=== PATIENT | male | born 1995 | race African-American/Black ===

== ENCOUNTER 2025-03-02 11:51 | Emergency (ER) | payer OTHER, SELFPAY ==
[2025-03-02 11:54] VITALS: BP 158/99
[2025-03-02 12:37] VITALS: BMI 30.5
--- NOTE | 2025-03-02 12:49 | ED.GENMED ---
History of Present Illness
General
Chief Complaint: Headache
Source: patient
Exam Limitations: none
Time Seen by Provider: 03/02/25 12:39
History of Present Illness
History of Present Illness:
29-year-old male complaining of about 1 week of right sided headaches. No history of headaches. Dull in nature. Comes and goes. Some response to acetaminophen. No fever no photophobia no other neurologic symptoms. No trauma. Headache is
mostly behind the right eye does radiate at times to the right neck. Concerned especially because his blood pressure this morning which initially was 120s over 80s went up on multiple rechecks up to a diastolic of 110.
Past History
Past History
ED Past Medical History: None
Phy Exam
Physical Exam
Physical Exam:
GENERAL: Alert and oriented in no apparent distress
EYE: Orbits normal. Discs sharp
NECK: Supple, no carotid bruit
ENT: Pharynx without erythema
CARDIAC: Regular rate and rhythm without any obvious murmurs.
LUNGS: Clear breath sounds,normal
ABDOMEN: Soft, without focal tenderness or distention
NEUROLOGICAL: Alert and oriented , cranial nerves II through XII intact. Speech normal. Extraocular muscles intact. No nystagmus. Lnbefy-ml-xfmy normal. No drift. Qdtg-di-guhm normal.
SKIN: Warm and dry, no rash or lesion, no discoloration, skin intact.
MUSCULOSKELETAL: No edema,no deformity.Good color
PSYCH: Normal and appropriate interaction.
Course
Orders/Labs/Results
Orders:
Orders
03/02/25
CT Head & Neck Angio W/wo IV Urgent
Comment:
Reason For Exam: Right sided headache with radiation to the neck
03/02/25 12:48
Electrocardiogram (*1) Stat
Reason for Study: Other
Other Reason for Exam: neuro symptoms
Cardiac Monitoring- Treatment ONCE
EKG- Treatment ONCE
IV Insert/Care/Rem.- Treatment PRN
0.9% Sodium Chloride 500 ml [Nss] 500 ml IV BOLUS
Pulse Ox/cont/shift [RESP] Stat
Quantity: 1
03/02/25 12:56
Basic Metabolic Panel Urgent
Complete Blood Count/With Diff Urgent
Erythrocyte Sed Rate Urgent
Abnormal Lab Results
03/02/25
12:56
WBC 4.0 L 10^3/uL
(4.8-10.8)
MPV 12.3 H fL
(7.4-10.4)
Monocytes % 10.9 H %
(1.7-9.3)
Glucose 103 H mg/dl
(70-99)
03/02/25 12:56
03/02/25 12:56
Vital Signs
Initial and Last Documented VS:
Initial Vital Signs
Temp Pulse Resp BP Pulse Ox
98.4 F 72 16 158/99 100
03/02/25 11:54 03/02/25 11:54 03/02/25 11:54 03/02/25 11:54 03/02/25 11:54
Last Documented Vital Signs
Temp Pulse Resp BP Pulse Ox
98.4 F 60 21 153/90 100
03/02/25 11:54 03/02/25 15:15 03/02/25 15:15 03/02/25 15:00 03/02/25 15:15
MDM/Problems Addressed
Differential Diagnosis Includes:
Patient with right-sided retrobulbar headache with at times radiation to the right neck. The eye is normal. Do not feel this is acute angle glaucoma. Neurologically stable. Unlikely to be a primary blood pressure issue although blood pressure
will be remonitored. With radiation to the right neck to consider carotid dissection. Unlikely but CTA will be ordered. Also check ESR.
*Radiology
Radiology exam reviewed: radiology read reviewed (neg ct angio)
*Pulse Oximetry
SaO2: 100
Oxygen Mode of Delivery: Room air
Patient hypoxic: no
*EKG
Interpreted by ED Provider?: Yes
Interpretation: normal
Comparison EKG: no comparison EKG present
Heart Rate: 59
Rate: bradycardiac
Rhythm: sinus
Trent: normal axis
Interval: normal interval
QRS Pattern: normal QRS
Ischemia: no ischemia
*Critical Care Note
Total Time (30-74mins, 75-104mins- exclusive of procedures): Not Applicable
Update Note
Update Note:
1538... Last blood pressure 153/90. Medically stable and nontoxic. Workup unremarkable. No indication for emergent blood pressure management but should follow-up. Some options are given to the patient.
ED Attending Note
-
Portions of this chart may have been created with voice recognition software.� Occasional wrong word or��sound alike� substitutions may have occurred due to the inherent limitations of voice recognition software.
Discharge Plan
Departure
Patient Disposition: Home (Routine Discharge)
Date of Disposition: 03/02/25
Time of Disposition: 15:42
Patient with high blood pressure during this ER visit?: Yes
Discharge Problem:
Headache/hypertension
Instructions: Headache, Adult (DC), BLOOD PRESSURE
Referrals:
[facility] [Provider Group] - Next open appointment
Juan Manuel Almeida MD [Active, Nephrology] - Next open appointment
Jelani Hernadez MD [Active, Cardiology] - Next open appointment
Stand Alone Forms: Return to Work
Activity Restrictions/Additional Instructions:
Watch your blood pressure
Follow-up closely. I gave you 3 options.
Return with any concerns or progression of symptoms
Interventions
Interventions:
*Risk Screen - Suicide Last Done: 03/02/25 11:54
*General Assessment Last Done: 03/02/25 12:37
*Neglect/Abuse Screening Last Done: 03/02/25 11:54
*ED- Fall Risk Assessment Last Done: 03/02/25 12:37
*ED COVID-19 Vaccine History Last Done: 03/02/25 12:37
ED- Cardiac Assessment Last Done: 03/02/25 12:40
ED- Neurological Assessment Last Done: 03/02/25 12:40
ED- Pulmonary Assessment Last Done: 03/02/25 12:40
Discharge Date and Time
Print Language: THAI
[2025-03-02 13:02] LABS: Hematocrit 41.1 % (39.0-52.0); Hemoglobin 13.6 g/dL (13.0-18.0); Mean Corp Hgb Conc. 33.1 g/dL (33.0-37.0); Mean Corpuscular Volume 82.2 fL (80.0-94.0); Nucleated Red Blood Cells % 0 % (-); Platelet Count 205 10^3/uL (130-400); Red Cell Dist. Width 14.1 % (11.5-14.5)
[2025-03-02 13:15] LABS: Blood Urea Nitrogen 9 mg/dl (9-20); Calcium 9.8 mg/dl (8.4-10.2); Carbon Dioxide 26 mmol/L (22-30); Chloride 107 mmol/L (98-107); Estimated Creatinine Clearance > 125 ml/min; Glucose 103 mg/dl (70-99); Potassium 3.8 mmol/L (3.5-5.1); Sodium 142 mmol/L (135-145); eGFR > 60.00
[2025-03-02] MEDS: NSS 500 IV (13:16)
[2025-03-02 14:30] VITALS: BP 157/98
[2025-03-02 15:00] VITALS: BP 153/90
[2025-03-02 16:00] VITALS: BP 160/100
== END 2025-03-02 16:32 | disposition home or self-care (01) ==
LOC: EMR 11:51
PROVIDERS: EMERGENCY PHYSICIAN Emergency Medicine
DX: R51.9 Headache, unspecified (principal); I10 Essential (primary) hypertension
CPT/HCPCS: 99284; 96360; 96361; 70496; 70498; 80048; 85025; 85652; 93005; Q9967